=== PATIENT | male | born 1935 | race Caucasian/White ===

== ENCOUNTER → 2016-11-14 | Outpatient (CLI) | payer MEDICARE ==
--- NOTE | 2016-11-15 08:36 | XR ---
EXAMINATION TYPE: XR tibia fibula LT DATE OF EXAM: 11/14/2016 2:06 PM COMPARISON: NONE HISTORY: Left leg wound TECHNIQUE: Two views are submitted. FINDINGS: The osseous structures are intact. There is arthropathy of the knee joint. Soft tissue edema seen. No destructive changes. IMPRESSION: 1. No acute osseous abnormality.
== END | disposition home or self-care (01) ==
LOC: RADXRYALE 13:53
PROVIDERS: ATTEND Physician Assistant Medical
DX: S81.802D Unspecified open wound, left lower leg, subsequent encounter (principal); X58.XXXD Exposure to other specified factors, subsequent encounter

== ENCOUNTER → 2016-11-18 | Outpatient (CLI) | payer MEDICARE ==
--- NOTE | 2016-11-21 10:47 | XR ---
Right hand HISTORY: Pain and swelling 3 views of the right hand No comparisons Arthropathy changes are present, there is joint space loss with marginal spurring at the interphalang eal joints, metacarpophalangeal joints especially first and third digits, intercarpal joints. Digits are flexed. Bone mineralization and alignment are maintained. Cortical thickening at the fourth metac arpal appears chronic and may be due to old trauma, correlate. Hypertrophic change also present at th e carpometacarpal joint of the first digit. IMPRESSION: Osteoarthritis.
== END ==
LOC: RADXRYALE 14:03
PROVIDERS: ATTEND Physician Assistant Medical
DX: M19.041 Primary osteoarthritis, right hand (principal)

== ENCOUNTER → 2017-03-20 | Outpatient (CLI) | payer MEDICARE ==
--- NOTE | 2017-03-21 10:45 | ECHOF ---
Referral Reason:R60.9 Peripheral edema,I10 Hypertension MEASUREMENTS -------- HEIGHT: 172.7 cm WEIGHT: 108.9 kg BP: 180/95 RVIDd: 2.5 cm (< 3.3) IVSd: 1.0 cm (0.6 - 1.1) LVIDd: 5.5 cm (3.9 - 5.3) LVPWd: 1.1 cm (0.6 - 1.1) IVSs: 1.5 cm LVIDs: 3.9 cm LVPWs: 1.6 cm LAESV Index (A-L): 23.48 ml/m Ao Diam: 4.2 cm (2.0 - 3.7) AV Cusp: 1.9 cm (1.5 - 2.6) LA Diam: 3.6 cm (2.7 - 3.8) MV EXCURSION: 17.007 mm (> 18.000) MV EF SLOPE: 105 mm/s (70 - 150) EPSS: 0.7 cm MV E Mike: 0.71 m/s MV DecT: 330 ms MV A Mike: 0.67 m/s MV E/A Ratio: 1.05 RAP: 5.00 mmHg RVSP: 8.21 mmHg FINDINGS -------- Resting bradycardia (HR<60bpm). This was a technically difficult study with suboptimal views. Overall left ventricular systolic function is normal with, an EF between 55 - 60 %. The right ventricle is normal in size and function. Normal LA size by volume 22+/-6 ml/m2. The right atrium is normal in size. 1.5mg of Definity was utilized for enhancement of images Aortic valve is trileaflet and is mildly thickened. Trace amount of aortic regurgitation. There is no evidence of aortic stenosis. Mild mitral annular calcification present. There is trace to mild mitral regurgitation. Trace tricuspid regurgitation present. There is no evidence of pulmonary hypertension. The right ventricular systolic pressure, as measured by Doppler, is 8.21mmHg. The pulmonic valve was not well visualized. The aortic root size is normal. Normal inferior vena cava with normal inspiratory collapse consistent with estimated right atrial pressure of 5 mmHg. The pericardium is normal. There is no pericardial effusion. CONCLUSIONS -------- 1. Resting bradycardia (HR<60bpm). 2. Trace tricuspid regurgitation present. 3. There is no evidence of pulmonary hypertension. 4. The right ventricular systolic pressure, as measured by Doppler, is 8.21mmHg. 5. The pulmonic valve was not well visualized. 6. The aortic root size is normal. 7. There is no pericardial effusion. 8. This was a technically difficult study with suboptimal views. 9. Overall left ventricular systolic function is normal with, an EF between 55 - 60 %. 10. Normal LA size by volume 22+/-6 ml/m2. 11. 1.5mg of Definity was utilized for enhancement of images 12. Aortic valve is trileaflet and is mildly thickened. 13. Trace amount of aortic regurgitation. 14. Mild mitral annular calcification present. 15. There is trace to mild mitral regurgitation. SLEEP TECHNOLOGIST: Robin Ramirez RDCS
== END | disposition home or self-care (01) ==
LOC: RADECHMAIN 15:50
PROVIDERS: ATTEND Family Medicine
DX: I08.3 Combined rheumatic disorders of mitral, aortic and tricuspid valves (principal); R00.1 Bradycardia, unspecified; I10 Essential (primary) hypertension
CPT/HCPCS: 93306

== ENCOUNTER → 2017-07-25 | Outpatient (CLI) | payer MEDICARE ==
--- NOTE | 2017-07-25 14:24 | XR ---
EXAMINATION TYPE: XR chest 2V DATE OF EXAM: 07/25/2017 COMPARISON: None TECHNIQUE: PA and lateral views submitted. HISTORY: Cough FINDINGS: The lungs are clear and there is no pneumothorax, pleural effusion, or focal pneumonia. There is a compression deformity involving the thoracolumbar junction of indeterminate age. Heart size is enlarg ed with no overt failure. Thickening. IMPRESSION: 1. Cardiomegaly. 2. Age-indeterminate compression deformity thoracolumbar junction.
== END | disposition home or self-care (01) ==
LOC: RADXRYALE 14:07
PROVIDERS: ATTEND Physician Assistant Medical
DX: I51.7 Cardiomegaly (principal)
CPT/HCPCS: 71020

== ENCOUNTER 2018-12-12 15:55 | Emergency (ER) | payer MEDICARE ==
[2018-12-12 17:03] LABS: Basophils % (A) 0 %; Eosinophils # (A) 0.1 k/uL (0-0.7); Eosinophils % (A) 2 %; HCT 43.9 % (39.0-53.0); HGB 14.5 gm/dL (13.0-17.5); Lymphocytes # (A) 1.1 k/uL (1.0-4.8); Lymphocytes % (A) 17 %; MCH 29.6 pg (25.0-35.0); MCV 89.6 fL (80.0-100.0); Mean Platelet Volume 7.4; Monocytes # (A) 0.3 k/uL (0-1.0); Monocytes % (A) 5 %; Neutrophils # (A) 4.7 k/uL (1.3-7.7); Neutrophils % (A) 75 %; Platelet Count 183 k/uL (150-450); RDW 14.7 % (11.5-15.5); WBC 6.3 k/uL (3.8-10.6)
[2018-12-12 17:07] LABS: INR 0.9 (<1.2); Partial Thromboplastin Time 22.1 sec (22.0-30.0)
[2018-12-12 17:08] LABS: Albumin 4.3 g/dL (3.5-5.0); Calcium 9.7 mg/dL (8.4-10.2); Potassium 4.3 mmol/L (3.5-5.1); Total Bilirubin 0.6 mg/dL (0.2-1.3); Total Protein 6.7 g/dL (6.3-8.2)
--- NOTE | 2018-12-12 17:15 | ED ---
General Adult HPI <Deshaun Ho - Last Filed: 12/12/18 19:01> - General Source: patient, RN notes reviewed, old records reviewed Mode of arrival: ambulatory Limitations: no limitations <Víctor Perez - Last Filed: 12/12/18 20:37> - General Chief complaint: Wound/Laceration Stated complaint: Leg swelling, poss blood clot Time Seen by Provider: 12/12/18 16:19 - History of Present Illness Initial comments: 83-year-old male patient with past medical history of CHF, type 2 diabetes, hypertension, hyperlipidemia, chronic kidney disease presents ED with a waxing and waning wound in the anterior aspect of his left tibia. Patient was this ongoing for 1 month. Patient reports he has a scabbed region. She denies any falls or trauma. Patient was seen by his primary care physician would like him to be evaluated for a possible blood clot in his left lower extremity. Patient denies any chest pain shortness of breath abdominal pain nausea vomiting or diarrhea, fevers or chills. Systemic: Pt denies fatigue, myalgia, fever/chills, rash. Pt denies weakness, night sweats, weight loss. Neuro: Pt denies headache, visual disturbances, syncope or pre-syncope. HEENT: Pt denies ocular discharge or irritation, otalgia, rhinorrhea, pharyngitis or notable lymphadenopathy. Cardiopulmonary: Pt denies chest pain, SOB, heart palpitations, dyspnea on exertion. Abdominal/GI: Pt denies abdominal pain, n/v/d. : Pt denies dysuria, burning w/ urination, frequency/urgency. Denies new onset urinary or bowel incontinence. MSK: Pt denies myalgia, loss of strength or function in extremities. Neuro: Pt denies new onset weakness, paresthesias. (Víctor Perez) - Related Data Home Medications Medication Instructions Recorded Confirmed Atorvastatin Calcium [Lipitor] 20 mg PO HS 04/16/18 04/16/18 Famotidine [Pepcid] 20 mg PO BID 04/16/18 04/16/18 Gabapentin [Neurontin] 600 mg PO HS 04/16/18 04/16/18 Insulin Glargine,Hum.rec.anlog 25 units SQ HS 04/16/18 04/16/18 [Lantus Solostar] Losartan Potassium 100 mg PO DAILY 04/16/18 04/16/18 cloNIDine HCL [Catapres] 0.1 mg PO DAILY 04/16/18 04/16/18 Previous Rx's Medication Instructions Recorded Acetaminophen Tab [Tylenol] 650 mg PO Q6HR PRN tab 04/19/18 Metoprolol Tartrate [Lopressor] 25 mg PO BID #60 tab 04/19/18 Multivitamins, Thera [Multivitamin 1 each PO DAILY@1200 #30 tab 04/19/18 (formulary)] cloNIDine HCL [Catapres] 0.2 mg PO Q24HR #10 tab 12/12/18 Allergies Allergy/AdvReac Type Severity Reaction Status Date / Time Penicillins Allergy Rash/Hives Verified 12/12/18 16:01 Review of Systems ROS Other: All systems not noted in ROS Statement are negative. <Deshaun Ho - Last Filed: 12/12/18 19:01> ROS Other: All systems not noted in ROS Statement are negative. <Víctor Perez - Last Filed: 12/12/18 20:37> ROS Statement: Those systems with pertinent positive or pertinent negative responses have been documented in the HPI. Past Medical History Past Medical History: Heart Failure, Diabetes Mellitus, GERD/Reflux, Hyperlipidemia, Hypertension, Renal Disease Additional Past Medical History / Comment(s): neuropathy, hx broken vertebra History of Any Multi-Drug Resistant Organisms: None Reported Past Surgical History: Cholecystectomy, Hernia Repair Additional Past Surgical History / Comment(s): lt cataract, col onoscopy/polypectomy Past Anesthesia/Blood Transfusion Reactions: No Reported Reaction Past Psychological History: No Psychological Hx Reported Smoking Status: Former smoker Past Alcohol Use History: None Reported Past Drug Use History: None Reported - Past Family History Father Family Medical History: Myocardial Infarction (SD) Mother Family Medical History: Dementia <Víctor Perez - Last Filed: 12/12/18 20:37> General Exam Limitations: no limitations <Víctor Perez - Last Filed: 12/12/18 20:37> - General Exam Comments Initial Comments: Constitutional: NAD, AOX3, Pt has pleasant affect. HEENT: NC/AT, trachea midline, neck supple, no lymphadenopathy. Posterior pharynx non erythematous, without exudates. External ears appear normal, without discharge. Mucous membranes moist. Eyes PERRLA, EOM intact. There is no scleral icterus. No pallor noted. Cardiopulmonary: RRR, no murmurs, rubs or gallops, no JVD noted. Lungs CTAB in anterior and posterior flores. No peripheral edema. Abdominal exam: Abdomen soft and non-distended. Abdomen non-tender to palpation in all 4 quadrants. Bowel sounds active in LLQ. No hepatosplenomegaly. No ecch ymosis Neuro: CN II-XII grossly intact. No nuchal rigidity. MSK: Approximately 2x2 cm scab located at L midshaft tibia. LLE is mildly edematous, no significant erythema. Nontender to palpation. No posterior calf tenderness bilaterally, homans sign negative bilaterally. Posterior tibialis and radial pulse +2 bilaterally. Sensation intact in upper and lower extremities. Full active ROM in upper and lower extremities, 5/5 stregnth. (Víctor Perez) Course <Deshaun Ho - Last Filed: 12/12/18 19:01> Vital Signs 12/12/18 12/12/18 12/12/18 15:57 17:47 18:03 Temperature 99.0 F Pulse Rate 89 70 Respiratory 18 20 Rate Blood Pressure 190/105 234/84 201/82 O2 Sat by Pulse 99 96 Oximetry 12/12/18 12/12/18 12/12/18 18:20 18:40 19:20 Temperature Pulse Rate Respiratory Rate Blood Pressure 201/82 219/95 203/106 O2 Sat by Pulse Oximetry - Reevaluation(s) Reevaluation #1: 12/12/18 19:01 PA supervision: I proceeded [id number] evaluation the patient he did present with complaints of a wound on his left leg and will not heal he was found have elevated blood pressures for taking 3 different medications. There is some evidence of dehydration. Patient was given IV fluids some alteration of his medication regimen. Review the assessment and plan. (Deshaun Ho) Medical Decision Making - Lab Data Result diagrams: 12/12/18 16:47 12/12/18 16:47 <Deshaun Ho - Last Filed: 12/12/18 19:01> - Lab Data Result diagrams: 12/12/18 16:47 12/12/18 16:47 <Víctor Perez - Last Filed: 12/12/18 20:37> - Medical Decision Making 83-year-old male patient with past medical history of CHF, type 2 diabetes, hypertension, hyperlipidemia, chronic kidney disease presents ED with a waxing and waning wound in the anterior aspect of his left tibia. Patient was this ongoing for 1 month. Patient reports he has a scabbed region. She denies any falls or trauma. Patient was seen by his primary care physician would like him to be evaluated for a possible blood clot in his left lower extremity. Patient denies any chest pain shortness of breath abdominal pain nausea vomiting or diarrhea, fevers or chills. Pt VS displayed moderate hypertension. Physical exam displayed: Approximately 2x2 cm scab located at L midshaft tibia. LLE is mildly edematous, no significant erythema. Nontender to palpation. No posterior calf tenderness bilaterally, homans sign negative bilaterally. Posterior tibialis and radial pulse +2 bilaterally. Laboratory investigations revealed mildly increased creatinine. Patient administered 500 mL normal saline. Tibia/fibula x-ray, lower extremity venous dopper. Did not display acute process. Patient left patient continued to be elevated, patient administered Catapres and hydralazine. Patient is asymptomatic. Denies any headache changes in vision nausea vomiting diarrhea. Watch exam normal 2. Patient discharge, will monitor his blood pressure at home. Patient will increase his dose of Catapres at home to 0.2 mg once daily. Pt will f/u with PCP in 1-2 days. Pt will return to ER if condition worsens in anyway. Case discussed and pt seen by Dr. Ho. (Víctor Perez) - Lab Data Lab Results 12/12/18 12/12/18 12/12/18 Range/Units 16:47 16:47 16:47 WBC 6.3 (3.8-10.6) k/uL RBC 4.90 (4.30-5.90) m/uL Hgb 14.5 (13.0-17.5) gm/dL Hct 43.9 (39.0-53.0) % MCV 89.6 (80.0-100.0) fL MCH 29.6 (25.0-35.0) pg MCHC 33.0 (31.0-37.0) g/dL RDW 14.7 (11.5-15.5) % Plt Count 183 (150-450) k/uL Neutrophils % 75 % Lymphocytes % 17 % Monocytes % 5 % Eosinophils % 2 % Basophils % 0 % Neutrophils # 4.7 (1.3-7.7) k/uL Lymphocytes # 1.1 (1.0-4.8) k/uL Monocytes # 0.3 (0-1.0) k/uL Eosinophils # 0.1 (0-0.7) k/uL Basophils # 0.0 (0-0.2) k/uL PT 10.0 (9.0-12.0) sec INR 0.9 (<1.2) APTT 22.1 (22.0-30.0) sec Sodium 139 (137-145) mmol/L Potassium 4.3 (3.5-5.1) mmol/L Chloride 103 (98-107) mmol/L Carbon Dioxide 27 (22-30) mmol/L Anion Gap 9 mmol/L BUN 33 H (9-20) mg/dL Creatinine 2.42 H (0.66-1.25) mg/dL Est GFR (CKD-EPI)AfAm 27 (>60 ml/min/1.73 sqM) Est GFR (CKD-EPI)NonAf 24 (>60 ml/min/1.73 sqM) Glucose 198 H (74-99) mg/dL Calcium 9.7 (8.4-10.2) mg/dL Total Bilirubin 0.6 (0.2-1.3) mg/dL AST 15 L (17-59) U/L ALT 23 (21-72) U/L Alkaline Phosphatase 106 (38-126) U/L Total Protein 6.7 (6.3-8.2) g/dL Albumin 4.3 (3.5-5.0) g/dL Disposition <Deshaun Ho - Last Filed: 12/12/18 19:01> Is patient prescribed a controlled substance at d/c from ED?: No <Víctor Perez - Last Filed: 12/12/18 20:37> Clinical Impression: Ulcer, Healing laceration Disposition: HOME SELF-CARE Condition: Stable Instructions (If sedation given, give patient instructions): Chronic Wound Care (ED) Additional Instructions: Patient to adhere to previously discussed treatment plan and will take medication(s) as directed. Patient to follow up with PCP in 1-2 days. Patient to return to ED if symptoms do not improve. Please monitor blood pressure at home. Please return to ER if he develops headache, changes in vision, or if condition worsens in any way. Please increase Catapres dose to 0.2 mg. Please follow-up with primary care provider in 1-2 days. Prescriptions: cloNIDine HCL [Catapres] 0.2 mg PO Q24HR #10 tab Referrals: Bola Jerez DO [Primary Care Provider] - 1-2 days
[2018-12-12] MEDS ORDERED: cloNIDine HCL 0.1 MG TAB PO STA (17:40)
--- NOTE | 2018-12-12 17:51 | US ---
EXAMINATION TYPE: US venous doppler duplex LE LT DATE OF EXAM: 12/12/2018 5:18 PM COMPARISON: NONE CLINICAL HISTORY: Pain. left leg pain and swelling for months SIDE PERFORMED: left TECHNIQUE: The lower extremity deep venous system is examined utilizing real time linear array sonog bertha with graded compression, doppler sonography and color-flow sonography. VESSELS IMAGED: External Iliac Vein (EIV) Common Femoral Vein Deep Femoral Vein Greater Saphenous Vein * Femoral Vein Popliteal Vein Small Saphenous Vein * Proximal Calf Veins (* superficial vessels) FINDINGS: Grayscale, color doppler, spectral doppler imaging performed of the deep veins of the lower extremities. There is normal flow, compressibility, vascular waveforms. IMPRESSION: Negative for DVT, left lower extremity.
--- NOTE | 2018-12-12 18:12 | XR ---
PROCEDURE: XR tibia fibula LT - 3V DATE AND TIME: 12/12/2018 5:31 PM CLINICAL INDICATION: PHH; Pain TECHNIQUE: Department protocol COMPARISON: None FINDINGS: There is no fracture or malalignment. No focal lesions. Marked degenerative joint changes, particularly advanced medial compartment of the right knee. The soft tissues are unremarkable. IMPRESSION: NO ACUTE PROCESS.
[2018-12-12] MEDS ORDERED: SODIUM CHLORIDE 0.9% 500 ML 500 ML IV STA (18:34)
[2018-12-12] MEDS ORDERED: hydrALAZINE HCL 20 MG/ML 1 ML VIAL IVP STA ×2 (19:34→20:52)
[2018-12-12 21:44] VITALS: BP 190/88; PULSE 72; RESP 19; TEMP 98
== END 2018-12-12 21:41 | disposition home or self-care (01) ==
LOC: EC 15:55
DX: L97.829 Non-pressure chronic ulcer of other part of left lower leg with unspecified severity (principal); S81.812D Laceration without foreign body, left lower leg, subsequent encounter; E86.0 Dehydration; I13.10 Hypertensive heart and chronic kidney disease without heart failure, with stage 1 through stage 4 chronic kidney disease, or unspecified chronic kidney disease; I50.9 Heart failure, unspecified; N18.9 Chronic kidney disease, unspecified; E11.22 Type 2 diabetes mellitus with diabetic chronic kidney disease; K21.9 Gastro-esophageal reflux disease without esophagitis; E78.5 Hyperlipidemia, unspecified; E11.40 Type 2 diabetes mellitus with diabetic neuropathy, unspecified; Z90.49 Acquired absence of other specified parts of digestive tract; Z98.890 Other specified postprocedural states; Z87.891 Personal history of nicotine dependence; Z79.4 Long term (current) use of insulin; Z79.899 Other long term (current) drug therapy; Z88.0 Allergy status to penicillin
CPT/HCPCS: 99284; 96374; 96376; 36415; 80053; 85025; 85610; 85730; 73590; 93971; J0360

== ENCOUNTER → 2019-11-19 | Outpatient (CLI) | payer MEDICARE ==
--- NOTE | 2019-11-19 09:15 | XR ---
EXAMINATION TYPE: XR foot complete RT DATE OF EXAM: 11/19/2019 CLINICAL HISTORY: Foot and heel pain for 3 weeks. TECHNIQUE: Frontal, lateral, and oblique images of the right foot are obtained. COMPARISON: None FINDINGS: There is no acute fracture/dislocation evident in the right foot. Large superior and infer ior calcaneal spurs. Hallux valgus positioning first metatarsophalangeal joint with moderate to sever e narrowing and mild marginal spurring. Some periostitis involving the second through fourth metatars als is nonspecific. Moderate spurring midfoot level along dorsal surface. Accessory ossicle near the cuboid bone. Mild plantar surface subcutaneous edema. Impression: As above.
== END | disposition home or self-care (01) ==
LOC: RADXRYALE 08:52
PROVIDERS: ATTEND Physician Assistant Medical
DX: M20.11 Hallux valgus (acquired), right foot (principal); M77.31 Calcaneal spur, right foot; M86.8X7 Other osteomyelitis, ankle and foot

== ENCOUNTER → 2021-02-17 | Outpatient (CLI) | payer MEDICARE ==
--- NOTE | 2021-02-17 15:42 | US ---
IMPRESSION: Grayscale, color doppler, spectral doppler imaging performed of the deep veins of the lo wer extremities. There is normal flow, compressibility, vascular waveforms. LOWER EXTREMITY VENOUS INSUFFICIENCY CLINICAL HISTORY: L97.522 NON PRESSURE CHR ULCER. nonhealing wound on top of foot after sunburn SIDE PERFORMED: Left 1) Color flow is present and patency is documented in the following vessels. No DVT or SVT is noted . Common Femoral Vein Deep Femoral Vein Femoral Vein Popliteal Vein Proximal Calf Veins Greater Saph Vein Upper Small Saph Vein No reflux seen IMPRESSION: No sonographic evidence for occlusive left lower extremity deep vein thrombosis. Nonocclusive thrombu s cannot be excluded as compression imaging was not provided.
--- NOTE | 2021-02-24 13:25 | P.ARTDOP ---
Arterial Doppler LOWER EXTREMITY ARTERIAL DOPPLER: DATE OF SERVICE: 02/17/2021 Reason for study: Left foot ulcer. Doppler waveforms: Multiphasic throughout on the left. A little blunting distally. Pulse volume recording: []. Pressure gradients: Only at the foot level. Ankle-brachial indices: Greater than 1 bilaterally. Toe brachial indices: 0.5 to on the right, 0.56 on the left Impression: Fairly normal perfusion, probably some vasospastic phenomenon. Distal disease less likely..
== END | disposition home or self-care (01) ==
LOC: RADUSWWP 13:10
PROVIDERS: ATTEND Family Medicine
DX: I87.2 Venous insufficiency (chronic) (peripheral) (principal); L97.522 Non-pressure chronic ulcer of other part of left foot with fat layer exposed; L55.1 Sunburn of second degree; L03.116 Cellulitis of left lower limb; E11.65 Type 2 diabetes mellitus with hyperglycemia; E11.40 Type 2 diabetes mellitus with diabetic neuropathy, unspecified; N18.6 End stage renal disease
CPT/HCPCS: 93922